=== PATIENT | female | born 2000 | race Two or more races ===

== ENCOUNTER 2025-08-18 10:10 | Day surgery (SDC) | payer BC, SELFPAY ==
[2025-08-18] VITALS (10 sets, daily range): BP systolic 117–149; BP diastolic 64–92; PULSE 80–115; RESP 13–19; TEMP 36.7–36.9; O2SAT 93–100; BMI 33.5
[2025-08-18 10:08] LABS: HCG Qualitative,Urine Negative
[2025-08-18] MEDS: RINGERS LACTATED 1000 ML 1,000 ML 20 ML IV (11:46)
[2025-08-18] MEDS: fentaNYL CIT INJ 50 mCg/ML AMP 2ML (ASD USE ONLY) IVP (11:48)
[2025-08-18] MEDS: MIDAZOLAM INJ 1 MG/ML VIAL 2 ML (ASD USE ONLY) 2 MG IVP (11:51)
== END 2025-08-18 12:44 | disposition home or self-care (01) ==
PROVIDERS: PCP Family Medicine; Referring Provider Internal Medicine Gastroenterology; Visit Provider Internal Medicine Gastroenterology
PROC: (CPT 43239; principal; 2025-08-18 12:45)
DX: K29.50 Unspecified chronic gastritis without bleeding (principal); K21.00 Gastro-esophageal reflux disease with esophagitis, without bleeding
CPT/HCPCS: 43239; 81025; A4217; A4649; J1200; J2250; J3010; J7120